=== PATIENT | female | born 2000 | race African-American/Black ===

== ENCOUNTER 2023-01-27 13:25 | Emergency (ER) | payer OTHER | END 2023-01-27 14:18 | disposition home or self-care (01) | LOC: CSHERS 13:25 | DX: M25.511 Pain in right shoulder (principal) | CPT/HCPCS: 99283 ==

== ENCOUNTER 2023-06-04 19:45 | Emergency (ER) | payer BC, OTHER ==
[2023-06-04] MEDS ORDERED: Ondansetron ODT 4 MG TAB ONE (21:44)
[2023-06-04 22:33] LABS: SARS-CoV-2 NAA Rapid Test Not Detected (NotDetected)
== END 2023-06-04 22:38 | disposition home or self-care (01) ==
LOC: CSHERS 19:45
DX: R11.2 Nausea with vomiting, unspecified (principal)
CPT/HCPCS: 99284; Q0162